=== PATIENT | female | born 1985 | race Caucasian/White ===

== ENCOUNTER 2020-09-19 09:15 | Emergency (ER) | payer OTHER ==
[~2020-09-19] VITALS: Ht 175.3 cm; Wt 83.0 kg
[~2020-09-19 09:15] MED LIST: CYMBALTA60 MG PO; DEPAKOTE ER500 MG PO; DEPLIN15 MG PO; LEVAQUIN750 MG PO; LIOTHYRONINE S25 MCG PO; MIRALAX17 GM PO; NEURONTIN800 MG PO; NORCO 5-325 TA1 EACH PO; OXYCODONE HCL5 MG PO; PERCOCET 5-3251 EACH PO; SEROQUEL XR300 MG PO; SEROQUEL300 MG PO; VITAMIN D5000 UNIT PO; WELLBUTRIN XL300 MG PO; ZOLPIDEM TARTRA10 MG PO; [UNRECOGNIZED DRUG - OTHER] PO
--- NOTE | 2020-09-20 14:33 | EKG ---
[facility] [address] [facility] [facility] [place], [place] [address] Signed Normal sinus rhythm Normal ECG No previous ECGs available Confirmed by CECILIA DUEÑAS DO ([id number]) on 09/20/2020 2:33:00 PM Electronically Signed By: CECILIA DUEÑAS DO 09/20/20 1433 PATIENT NAME: LUZCARMEN BRUNSON Electrocardiogram DATE OF : 87 PHYSICIAN: CECILIA DUEÑAS DO REPORT #: [id number] REPORT IS CONFIDENTIAL AND NOT TO BE RELEASED WITHOUT AUTHORIZATION
== END 2020-09-19 11:24 | disposition home or self-care (01) ==
LOC: ED 09:15
DX: R09.1 Pleurisy (principal); Z87.891 Personal history of nicotine dependence; Z88.0 Allergy status to penicillin; Z88.8 Allergy status to other drugs, medicaments and biological substances
CPT/HCPCS: 71046; 80053; 83735; 84484; 85025; 85379; 93005; 93010; 96374; 99285-25; J1885

== ENCOUNTER 2022-09-27 17:55 | Emergency (ER) | payer OTHER ==
[~2022-09-27] VITALS: Ht 175.3 cm; Wt 90.5 kg
--- OUTSIDE RECORDS SUMMARY | ~2022-09-27 | XMS | Continuity of Care Document ---
Demographics + + + | Address | [address] | | | [place] [address] | + + + | Preferred Language | Unknown | + + + | Marital Status | | + + + | Gnosticist Affiliation | Unknown | + + + | Race | White | + + + | Ethnic Group | Unknown | + + + Author + + + | Author | [facility] | + + + | Organization | [facility] | + + + | Address | [address] | | | [place] [address] | + + + | Phone | | + + + Care Team Providers + + + + | Care Unit Clerk Name | Role | Phone | + + + + Unavailable | Unavailable | + + + + Allergies No information. Encounters No information. Functional Status No information. Immunizations No information. Medications No information. Problems + + + + | date | description | facility | + + + + | 2022-09-13 18:39 | [facility] | [facility] | + + + + Procedures No information. Results/Labs No information. Social History No information. Vital Signs No information."
--- OUTSIDE RECORDS SUMMARY | ~2022-09-27 | XMS | Continuity of Care Document ---
Demographics + + + | Address | [address] | | | [place] [address] | + + + | Preferred Language | Unknown | + + + | Marital Status | | + + + | Congregation Affiliation | Unknown | + + + | Race | White | + + + | Ethnic Group | Unknown | + + + Author + + + | Author | [facility] | + + + | Organization | [facility] | + + + | Address | [address] | | | [place] [address] | + + + | Phone | | + + + Care Team Providers + + + + | Care Dictionary Editor Name | Role | Phone | + [...]
--- OUTSIDE RECORDS SUMMARY | 2022-09-27 17:59 | XMS ---
PreManage Notification: CARMEN ESCOBAR Security Client Project Coordinator Events No recent Security Events currently on file CRITERIA MET - [facility] CARE PROVIDERS - [place]- Dentist: [employer] [facility] PHONE: [phone] EH CORDERO Nurse Practitioner: Family 10/13/2017-Current PHONE: Unknown Jose Counselor: Addiction (Substance Use Disorder) PAULA Gray PHONE: [phone] Shira Zavaleta Nurse Practitioner: Family Current PHONE: [phone] King has no Care Guidelines for this patient. [facility] VISIT COUNT (12 MO.) 1 [facility] [place] TOTAL 1 NOTE: Visits indicate total known visits. ED/UCC VISIT TRACKING (12 MO.) 09/27/2022 17:56 [facility] OR TYPE: Emergency COMPLAINT: - LT LEG SWELLING INPATIENT VISIT TRACKING (12 MO.) No inpatient visits to display in this time frame [id number]
[2022-09-27] MEDS ORDERED: GABAPENTIN300 MG PO (18:07)
[2022-09-27] MEDS ORDERED: PREDNISONE20 MG PO (18:07)
[2022-09-27] MEDS ORDERED: HYDROCODON-ACE1 EA10 PO (18:07)
[2022-09-27 18:55] VITALS: BP 137/89
== END 2022-09-27 18:56 | disposition home or self-care (01) ==
LOC: ED 17:55
DX: I80.02 Phlebitis and thrombophlebitis of superficial vessels of left lower extremity (principal); Z87.891 Personal history of nicotine dependence; Z88.0 Allergy status to penicillin; Z88.8 Allergy status to other drugs, medicaments and biological substances; Z79.52 Long term (current) use of systemic steroids
CPT/HCPCS: 93971; 99283 25